=== PATIENT | male | born 1955 | race Caucasian/White ===

== ENCOUNTER 2020-02-09 13:13 | Outpatient (REF) | payer OTHER, SELFPAY ==
--- NOTE | 2020-02-09 13:18 | CT_ITS ---
EXAMINATION: CT HAND WITHOUT CONTRAST, LEFT CLINICAL INFORMATION: Fracture COMPARISON: None TECHNIQUE: A noncontrast CT of the left hand is performed with sagittal and coronal reformats. This CT examination was performed using dose optimization techniques as appropriate, variously including the following: *Automated exposure control *Adjustment of mA and/or kV according to patient size (this includes techniques or standardized protocols for targeted exams where dose is matched to indication/reason for exam; i.e. extremities or head) *Use of iterative reconstruction technique DLP: 220 FINDINGS: Normal alignment. No acute fracture. No radiopaque foreign body. Mild degenerative changes of the radiocarpal joint, as well as the pisotriquetral articulation. There is faint chondrocalcinosis, particularly along the ulnar aspect of the carpus. CT/CT hand LT wo con IMPRESSION: No acute fracture or dislocation. Mild degenerative changes as described.
== END 2020-02-09 13:14 | disposition home or self-care (01) ==
LOC: HO.CT 13:13
PROVIDERS: PCP Internal Medicine; Visit Provider Internal Medicine
DX: S62.92XA Unspecified fracture of left hand, initial encounter for closed fracture (principal)
CPT/HCPCS: 73200

== ENCOUNTER 2020-03-04 09:42 | Outpatient (REF) | payer OTHER, SELFPAY ==
[2020-03-04 11:08] LABS: Prostate Specific Antigen 0.07 ng/mL (<0.05-4.0)
== END 2020-03-04 09:43 | disposition home or self-care (01) ==
LOC: HO.10HDL 09:42
PROVIDERS: Visit Provider Urology
DX: C61 Malignant neoplasm of prostate (principal)
CPT/HCPCS: 84153

== ENCOUNTER → 2020-03-08 13:38 | Outpatient (BNVA) | payer OTHER, SELFPAY | PROVIDERS: PCP Internal Medicine; Visit Provider Urology | DX: Z76.89 Persons encountering health services in other specified circumstances (principal) ==

== ENCOUNTER 2020-09-02 09:44 | Outpatient (REF) | payer OTHER, SELFPAY ==
[2020-09-02 11:06] LABS: MANUAL DIFF FLAG NO
[2020-09-02 11:13] LABS: Basophils Absolute Auto 0.1 X10*3/uL (0.0-0.2); Basophils Percent Auto 0.9 % (0-2); Eosinophils Absolute Auto 0.1 X10*3/uL (0.0-0.4); Eosinophils Percent Auto 2.1 % (0-4); Hematocrit 41.8 % (42-52); Imm Gran Abs Auto 0.02 X10*3/uL (0.00-0.03); Imm Gran Pct Auto 0.4 % (0.0-0.4); Lymphocytes Absolute Auto 1.7 X10*3/uL (1.2-4.9); Mean Corpuscular HGB Conc 33.5 g/dl (31.0-36.0); Mean Corpuscular Hemoglobin 29.6 pg (27.0-33.0); Mean Corpuscular Volume 88.4 fL (80-98); Mean Platelet Volume 9.8 fL (9.4-12.4); Monocytes Absolute Auto 0.4 X10*3/uL (0.1-1.2); Monocytes Percent Auto 7.6 % (2-11); Neutrophils Absolute Auto 3.3 X10*3/uL (2.0-8.3); Platelet Count 321 X10*3/uL (160-400); Red Blood Count 4.73 X10*6/uL (4.60-5.80); Red Cell Distribution Width 12.2 % (11.0-16.0); White Blood Count 5.6 X10*3/uL (4.8-10.8)
[2020-09-02 11:51] LABS: Prostate Specific Antigen 0.14 ng/mL (<0.05-4.0)
[2020-09-02 11:52] LABS: Alanine Aminotransferase 27 U/L (0-40); Albumin Level 4.5 g/dL (3.5-5.0); Alkaline Phosphatase 74 U/L (39-117); Anion Gap 14 (12-20); Aspartate Amino Transferase 22 U/L (5-37); Bilirubin Total 0.9 mg/dL (0.0-1.0); Blood Urea Nitrogen 24 mg/dL (9-16); Calcium 9.4 mg/dL (8.4-10.2); Carbon Dioxide 24 mmol/L (22-29); Chloride 106 mmol/L (96-108); Estimated Glomerular Filt Rate > 60; Glucose Random 105 mg/dL (60-115); Potassium 4.8 mmol/L (3.3-5.1); Sodium 139 mmol/L (135-145); Total Protein 6.8 g/dL (6.5-8.0); Uric Acid 8.3 mg/dL (3.4-7.0)
== END 2020-09-02 09:45 | disposition home or self-care (01) ==
LOC: HO.LAB 09:44
PROVIDERS: Absent Provider Urology; PCP Internal Medicine; Visit Provider Internal Medicine
DX: I10 Essential (primary) hypertension (principal); M10.9 Gout, unspecified; C61 Malignant neoplasm of prostate; Z12.5 Encounter for screening for malignant neoplasm of prostate
CPT/HCPCS: 36415; 80053; 84153; 84550; 85025

== ENCOUNTER → 2020-09-06 13:35 | Outpatient (BNVA) | payer OTHER, SELFPAY | PROVIDERS: PCP Internal Medicine; Visit Provider Urology ==

== ENCOUNTER 2020-11-02 11:03 | Outpatient (REF) | payer OTHER, SELFPAY ==
[2020-11-02 13:15] LABS: Uric Acid 7.6 mg/dL (3.4-7.0)
== END 2020-11-02 11:04 | disposition home or self-care (01) ==
LOC: HO.MANLDS 11:03
PROVIDERS: PCP Internal Medicine; Visit Provider Internal Medicine
DX: M10.9 Gout, unspecified (principal)
CPT/HCPCS: 36415; 84550

== ENCOUNTER 2021-02-01 09:41 | Outpatient (REF) | payer OTHER, SELFPAY ==
[2021-02-01 11:34] LABS: Uric Acid 6.6 mg/dL (3.4-7.0)
== END 2021-02-01 09:42 | disposition home or self-care (01) ==
LOC: HO.MANLDS 09:41
PROVIDERS: PCP Internal Medicine; Visit Provider Internal Medicine
DX: M10.9 Gout, unspecified (principal)
CPT/HCPCS: 36415; 84550

== ENCOUNTER 2021-03-08 09:41 | Outpatient (REF) | payer OTHER, SELFPAY ==
[2021-03-08 11:33] LABS: Uric Acid 6.7 mg/dL (3.4-7.0)
== END 2021-03-08 09:42 | disposition home or self-care (01) ==
LOC: HO.MANLDS 09:41
PROVIDERS: PCP Internal Medicine; Visit Provider Internal Medicine
DX: M10.9 Gout, unspecified (principal); C61 Malignant neoplasm of prostate
CPT/HCPCS: 36415; 84550

== ENCOUNTER 2021-03-08 10:14 | Outpatient (REF) | payer OTHER, SELFPAY ==
[2021-03-08 14:41] LABS: Prostate Specific Antigen 0.07 ng/mL (<0.05-4.0)
== END 2021-03-08 10:15 | disposition home or self-care (01) ==
LOC: HO.10HDL 10:14
PROVIDERS: Visit Provider Urology
DX: C61 Malignant neoplasm of prostate (principal); Z12.5 Encounter for screening for malignant neoplasm of prostate
CPT/HCPCS: 36415; 84153

== ENCOUNTER → 2021-03-14 13:02 | Outpatient (BNVA) | payer OTHER, SELFPAY | PROVIDERS: PCP Internal Medicine; Visit Provider Urology ==

== ENCOUNTER 2021-05-29 09:31 | Outpatient (REF) | payer OTHER, SELFPAY ==
[2021-05-29 10:54] LABS: Alanine Aminotransferase 17 U/L (0-40); Albumin Level 4.1 g/dL (3.5-5.0); Alkaline Phosphatase 62 U/L (39-117); Anion Gap 13 (12-20); Aspartate Amino Transferase 13 U/L (5-37); Bilirubin Total 0.5 mg/dL (0.0-1.0); Blood Urea Nitrogen 27 mg/dL (9-16); Carbon Dioxide 27 mmol/L (22-29); Chloride 106 mmol/L (96-108); Cholesterol 158 mg/dL; Estimated Glomerular Filt Rate > 60; Glucose Fasting 118 mg/dL (60-99); HDL Cholesterol 50 mg/dL; LDL Cholesterol Calculated 80 mg/dl; Potassium 4.5 mmol/L (3.3-5.1); Sodium 141 mmol/L (135-145); Total Protein 6.3 g/dL (6.5-8.0); Triglycerides 144 mg/dL
[2021-05-29 10:57] LABS: Vitamin D 25-OH Total 27.1 ng/mL (>30)
[2021-05-29 10:58] LABS: Prostate Specific Antigen 0.06 ng/mL (<0.05-4.0)
[2021-05-29 11:00] LABS: ~HepC Num1 0.09 S/CO (0.00-0.79); ~Hepatitis C Antibody Nonreactive (Nonreactive)
[2021-05-29 11:05] LABS: Uric Acid 7.3 mg/dL (3.4-7.0)
== END 2021-05-29 09:32 | disposition home or self-care (01) ==
LOC: HO.10HDL 09:31
PROVIDERS: Absent Provider Internal Medicine; Visit Provider Urology
DX: Z00.00 Encounter for general adult medical examination without abnormal findings (principal); Z11.59 Encounter for screening for other viral diseases; Z12.5 Encounter for screening for malignant neoplasm of prostate; C61 Malignant neoplasm of prostate; M10.9 Gout, unspecified
CPT/HCPCS: 36415; 80053; 80061; 82306; 84153; 84550; 86803

== ENCOUNTER 2021-06-29 12:55 | Outpatient (REF) | payer OTHER, SELFPAY ==
--- NOTE | ~2021-06-29 | CT_ITS ---
EXAMINATION: CT HEAD WITHOUT CONTRAST CLINICAL INFORMATION: Migraines. COMPARISON: Head CT from 11/22/2011. TECHNIQUE: Contiguous axial imaging was performed from the skull base to vertex without intravenous administration of contrast. This CT examination was performed using dose optimization techniques as appropriate, variously including the following: *Automated exposure control *Adjustment of mA and/or kV according to patient size (this includes techniques or standardized protocols for targeted exams where dose is matched to indication/reason for exam; i.e. extremities or head) *Use of iterative reconstruction technique DLP: 881 mGy-cm FINDINGS: There is a 2 x 1.6 x 1.2 cm low-density lesion in the medial left temporal lobe with some surrounding high attenuation, otherwise indeterminate. No surrounding vasogenic edema visible at this site. There is no evidence of acute intracranial hemorrhage or territorial infarction. No abnormal mass effect or midline shift is seen. Luong to white matter differentiation is well preserved. No extra-axial fluid collections are identified. The ventricles are normal in size. The osseous structures and soft tissues are normal. The mastoid air cells and visualized portions of the paranasal sinuses are well aerated. CT/CT head/brain wo con IMPRESSION: Indeterminate 2 x 1.6 cm low-density lesion with some vague surrounding high attenuation in the left temporal lobe. A follow-up MRI of the brain without and with contrast is recommended for further evaluation. Findings reported to LOPE[facility]ward at 12:10 PM on 06/30/2021.
== END 2021-06-29 12:56 | disposition home or self-care (01) ==
LOC: HO.CT 12:55
PROVIDERS: PCP Internal Medicine; Visit Provider Physician Assistant
DX: G43.909 Migraine, unspecified, not intractable, without status migrainosus (principal)
CPT/HCPCS: 70450

== ENCOUNTER 2021-07-03 13:35 | Outpatient (REF) | payer OTHER, SELFPAY ==
--- NOTE | ~2021-07-03 | MR_ITS ---
MRI OF THE BRAIN WITH AND WITHOUT IV CONTRAST INDICATION: Left temporal lesion. COMPARISON: Head CT 06/29/2021. TECHNIQUE: Multiplanar multisequence MR imaging of the brain was obtained without and following the administration of 9 mL of Gadavist without complication. FINDINGS: There is expansile infiltrative T2 signal change involving the mesial and inferior left temporal lobe with associated sulcal effacement, highly concerning for infiltrative glioma. There are multiple superimposed areas of nodular enhancement throughout the site of infiltrative T2 signal change including surrounding a dominant 2 cm cyst within the mesial left temporal lobe. Multiple additional nodular foci of enhancement are seen lateral and posterior to the cyst, the largest measuring 1.6 cm on image 12 of series 9. The sites of enhancement are concerning for high-grade tumor. There are mild T2 signal changes within the subcortical white matter of the inferior left parietal lobe that could reflect an additional site of infiltrative tumor which can be closely followed. There is no hydrocephalus, extra-axial surface collection, or herniation. The major flow voids at the skull base are preserved. There is no acute infarct on diffusion-weighted imaging. There is no intracranial hemorrhage on the gradient recalled echo acquisition. The midline structures are normal. The cerebellar tonsils are normally positioned. The cerebellum and brainstem are normal. The craniocervical junction is normal. Osseous marrow signal intensity is homogenous. The visualized soft tissues are unremarkable. 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 There are mild T2 signal changes within the subcortical white matter of the inferior left parietal lobe that could reflect an additional site of infiltrative tumor which can be closely followed.
== END 2021-07-03 13:36 | disposition home or self-care (01) ==
LOC: HO.MRI 13:35
PROVIDERS: Visit Provider Physician Assistant
DX: G93.9 Disorder of brain, unspecified (principal)
CPT/HCPCS: 70553; A9585

== ENCOUNTER 2021-07-06 09:37 | Outpatient (REF) | payer OTHER, SELFPAY | END 2021-07-06 09:38 | disposition home or self-care (01) | LOC: HO.LAB 09:37 | PROVIDERS: PCP Internal Medicine; Visit Provider Physician Assistant | DX: Z13.89 Encounter for screening for other disorder (principal) ==

== ENCOUNTER → 2021-09-12 11:45 | Outpatient (BNVA) | payer OTHER, SELFPAY | PROVIDERS: PCP Internal Medicine; Visit Provider Urology | DX: Z13.89 Encounter for screening for other disorder (principal) ==